=== PATIENT | male | born 1970 | race Caucasian/White ===

== ENCOUNTER 2016-06-16 18:58 | Emergency (ER) | payer BC ==
--- NOTE | ~2016-06-16 | EKG ---
PATIENT: TRISHA YANEZ UNIT #: [id number] Ventricular Rate: 96 BPM Atrial Rate: 96 BPM P-R Interval: 140 ms QRS Duration: 80 ms Q-T Interval: 354 ms QTC Calculation(Bezet): 447 ms P [place]: 21 degrees Calculated R [place]: 69 degrees Calculated T [place]: -6 degrees Diagnosis Line: Normal sinus rhythm Diagnosis Line: Nonspecific ST depression Diagnosis Line: Borderline ECG Diagnosis Line: No previous ECGs available Diagnosis Line: Confirmed by BURTON HOPKINS MD ([id number]) on 06/16/2016 Diagnosis Line: 7:25:49 PM INTERPRETING MD: SANDEEP KHANNA
--- NOTE | ~2016-06-16 | CR72 ---
[facility] A Service of [facility] & [facility] RADIOLOGY TEXT RESULTS PATIENT: TRISHA YANEZ LOCATION: [facility] : 68 UNIT #: [id number] AGE: [address]: Kareem Jackson MD SEX: M ORDER DR: [id number] [facility] [address] [place], [place] [address] [id number] E MR#: [id number] Acc #: [id number] NAME: TRISHA YANEZ : 1970 SEX: M STUDY DATE/TIME: 06/16/2016 19:15 UNIT: [facility] ROOM: STUDY DESCRIPTION: CR Chest Single View Portable Attending Physician: Kareem Jackson M.D. Ordering Physician: Ed Doc Maury Anna Primary Care Physician: No Primary Care Physician MEDICAL IMAGING REPORT This report is preliminary unless electronic signature is present EXAM Portable chest HISTORY Heart palpitations for 1 week. FINDINGS A single AP portable view of the chest shows both lungs to be clear. The heart is normal in size. The mediastinal contour is normal. No significant bone abnormalities are seen. IMPRESSION Normal portable chest. Dictated by... Justo Marie M.D. THIS IS AN ELECTRONICALLY VERIFIED REPORT Justo Marie M.D. at 06/17/2016 11:18 PM JOSH/raven TD: 06/17/2016 02:42 JOB #: [id number] MEDICAL IMAGING REPORT Page 1 of 1 COPY
[2016-06-16 17:43] LABS: BASOPHIL# 0.1 X10e3 (0-0.3); BASOPHIL% 0.7 % (0-2.5); EOSINOPHIL# 0.1 X10e3 (0-0.7); EOSINOPHIL% 0.5 % (0.0-7.0); HEMATOCRIT 46.5 % (38.0-50.0); HEMOGLOBIN 15.7 gm/dL (13.0-16.0); LYMPHOCYTE# 1.5 X10e3 (1.0-3.5); LYMPHOCYTE% 14.2 % (17.0-45.0); MEAN CORPUSCULAR HEMOGLOBIN 29.7 PG (28-34); MEAN CORPUSCULAR HGB CONC 33.7 g/dL (30-36); MEAN PLATELET VOLUME 9.1 FL (6.5-11.5); MONOCYTE# 0.6 X10e3 (0-1.0); MONOCYTE% 5.8 % (3.0-12.0); NEUTROPHIL# 8.5 X10e3 (1.5-7.1); NEUTROPHIL% 78.8 % (40-75); PLATELET COUNT 190 X10e3 (140-420); RED BLOOD COUNT 5.28 X10e (3.90-5.60); RED CELL DISTRIBUTION WIDTH 13.3 % (11.0-15.5); WHITE BLOOD COUNT 10.8 X10e3 (4.0-10.5)
[2016-06-16 17:48] LABS: DIFF IND NO
[2016-06-16 18:06] LABS: BUN/CREATININE RATIO 14.44; CALCIUM SERUM 9.4 mg/dL (8.4-10.2); CREATININE SERUM 0.9 mg/dL (0.6-1.4); GLOM FILT RATE Estimated 101.4 mL/min (>60); POTASSIUM 3.8 mmol/L (3.5-5.1)
[2016-06-16 19:16] LABS: POC - CKMB <1.0 ng/mL (0.0-7.9); POC - TROPONIN <0.05 ng/mL (<=0.05)
[2016-06-16 19:42] LABS: AMPHETAMINE NEG (NEG); BARBITURATES NEG (NEG); BENZODIAZEPINES NEG (NEG); COCAINE NEG (NEG); MARIJUANA POS (NEG); OPIATES NEG (NEG); TRICYCLIC ANTIDEPRESSANTS NEG (NEG); U METHADONE NEG (NEG)
== END 2016-06-16 20:00 | disposition home or self-care (01) ==
LOC: CED 18:58
PROVIDERS: Emergency Medicine
DX: R00.2 Palpitations (principal); Z87.442 Personal history of urinary calculi; Z98.890 Other specified postprocedural states; Z88.0 Allergy status to penicillin; F17.210 Nicotine dependence, cigarettes, uncomplicated
CPT/HCPCS: 36415; 71010; 80048; 80307; 82553; 84443; 84484; 85025; 93005; 99283